=== PATIENT | male | born 1985 | race Caucasian/White ===

== ENCOUNTER 2016-09-24 08:47 | Inpatient (IN) | payer MEDICAID ==
[~2016-09-24] VITALS: Ht 188 cm; Wt 154.2 kg
[2016-09-24] MEDS ORDERED: KETOROLAC TROMETHAMINE 15 MG INJ IV ONE (09:45)
[2016-09-24] MEDS ORDERED: VANCOMYCIN IV 1,000 MG in IV DEXTROSE 5% 250 ML IV ONE (09:45)
[2016-09-24] MEDS ORDERED: PIPERACILLIN SODIUM/TAZOBACTAM 3.375 G in IV DEXTROSE 5% 50 ML IV ONE (09:45)
[2016-09-24] MEDS ORDERED: VANCOMYCIN IV 200 ML ONE (10:13)
[2016-09-24] MEDS ORDERED: PIPERACILLIN/TAZOBACTAM/D5W 50 ML IV ONE (10:13)
[2016-09-24] MEDS ORDERED: KETOROLAC TROMETHAMINE 15 MG INJ ONE (10:13)
[2016-09-24 10:16] LABS: CREATININE 1.3 mg/dL (0.6-1.3); POTASSIUM 3.7 mmol/L (3.5-5.1)
--- NOTE | 2016-09-24 10:17 | NUR ---
IV PLACED, BLOOD CX/LABS DRAWN/TOTADOL ADMINISTERED/XRAYS COMPLETED/ ZOSYN IVPB INFUSING, EZEQUIEL TECH AT THE SIDE.EKG DONE. PT POSITIONED FOR COMFORT.
[2016-09-24 10:19] LABS: BASOPHILS # (AUTO) 0.3 K/uL (0.0-8.0); BASOPHILS % (AUTO) 1.2 % (0.0-2.0); EOSINOPHILS % (AUTO) 0.1 % (0.0-7.0); HEMATOCRIT 44.5 % (40-50); HEMOGLOBIN 14.6 G/DL (14.0-18.0); LYMPHOCYTES # (AUTO) 0.6 K/UL (0.8-4.8); LYMPHOCYTES % (AUTO) 2.8 % (20.5-51.5); MEAN CORPUSCULAR HEMOGLOBIN 25.8 UUG (27.0-31.0); MEAN CORPUSCULAR HGB CONC 33 g/dL (32.0-37.0); MEAN CORPUSCULAR VOLUME 78.7 FL (82.0-92.0); MONOCYTES # (AUTO) 0.5 K/UL (0.1-1.30); MONOCYTES % (AUTO) 2.2 % (0.0-11.0); NEUTROPHILS # (AUTO) 19.9 K/UL (1.8-8.9); NEUTROPHILS % (AUTO) 93.7 % (38.5-71.5); PLATELET COUNT (AUTO) 208 K/UL (150-450); RED BLOOD CELL COUNT(AUTO) 5.65 MIL/UL (4.7-6.1); WHITE BLOOD COUNT (AUTO) 21.3 K/UL (4.0-11.2)
[2016-09-24 10:32] LABS: BILIRUBIN,DIRECT 0.1 mg/dL (0.0-0.2); BILIRUBIN,TOTAL 0.7 mg/dL (0.2-1.0); TOTAL PROTEIN, SERUM 7.7 g/dL (6.4-8.2)
--- NOTE | 2016-09-24 11:42 | NUR ---
[facility] knox in [facility] - 09/24/16 at 1145 by [id number] Patient discharged to home in stable conditon. Written and verbal after care instructions given. Patient verbalizes understanding of instructions.
[2016-09-24 11:52] LABS: BAND % (MANUAL) 6 % (0-10); LYMPHOCYTES % (MANUAL) 6 % (20-40); MONOCYTES % (MANUAL) 2 % (2-10); NEUTROPHILS % (MANUAL) 86 % (42-75)
[2016-09-24] MEDS ORDERED: ACETAMINOPHEN 325 MG TABLET PO ONE (12:30)
[2016-09-24] MEDS ORDERED: ACETAMINOPHEN ES 500 MG TABLET ONE (12:33)
--- NOTE | 2016-09-24 12:36 | NUR ---
MSE COMOPLETED, ADMIT ORDER WRITTEN, ALL MEDS ADMIN. BELONGINGS LIST DONE, AND ADMISSION DATA REPORT COMPLETED. CALLED [facility] 15MIN AGO TO GIVE REPORT TO 2ND FLOOR AND ACCEPTING RN WAS UNK. 2ND FLOOR TO CALL BACK FOR REPORT. PT RESTING, POSITIONED FOR COMFORT.
--- NOTE | 2016-09-24 12:44 | NUR ---
SBAR REPORTB TO VANNA MOON. PT TO RM 230 .
[2016-09-24] MEDS ORDERED: ASPI1TAB5 PO (12:46)
--- NOTE | 2016-09-24 13:30 | NUR ---
Patient admitted to ER with complaints of left leg pain. Diagnosis cellulitis of the bilateral lower extremity. Patient legs are edematous. Will be started on IV antibiotics. Awaiting orders from . Pics taken.
--- NOTE | 2016-09-24 13:32 | NUR ---
Patient is noted hypotensive. Will call MD to notify. Baseline 112/84 BP 97/60 P 104 TEMP 99.7 F SP02 94% RR 20
[2016-09-24] MEDS ORDERED: ZOLPIDEM 5 MG TABLET PO PRN (15:00)
[2016-09-24] MEDS ORDERED: ACETAMINOPHEN 325 MG TABLET PO PRN (15:00)
[2016-09-24] MEDS ORDERED: VANCOMYCIN IV 1,500 MG in IV DEXTROSE 5% 500 ML IV SCH (15:00)
[2016-09-24] MEDS: IV NS 1000 ML 1,000 ML IV PRN (15:00)
[2016-09-24] MEDS ORDERED: Z GUARD REMEDY PASTE 57 GM TUBE TOP PRN (15:00)
[2016-09-24] MEDS ORDERED: MAGNESIUM HYDROXIDE 30 ML LIQUID UDC PO PRN (15:00)
[2016-09-24 16:13] VITALS: BP 107/67
--- NOTE | 2016-09-24 17:37 | NUR ---
Clinical pharmacy note-Vancomycin dosing per pharmacy Subjective: To start Vancomycin dosing on this 31 year old patient for cellulitis Objective: BUN 18 Scr 1.3 WBC 21.3 Temp 101 Ht 6'2" Wt 340 lbs (verified with nurse) Assessment/Plan: Patient had 1 gram of Vancomycin in er today at 1035. Will start Vancomycin 2500mg(15mg/kg) every 12 hrs, First dose will be tonight at 1830. Will draw trough by 4th dose(not ordered yet ) for expected trough around 15. Will monitor renal function closely to adjust the dose if needed. Will follow daily.
[2016-09-24] MEDS: HYDROCODONE/APAP 5-325MG TABLET PO PRN (18:17)
[2016-09-24] MEDS: VANCOMYCIN IV 2,500 MG in IV DEXTROSE 5% 500 ML IV SCH (19:08)
[2016-09-24 20:38] VITALS: BP 117/72
[2016-09-24] MEDS: ONDANSETRON 4 MG/2 ML VIAL IV PRN (21:50)
[2016-09-25] MEDS: IV NS 1000 ML 1,000 ML IV PRN ×3 (02:14→22:16)
--- NOTE | 2016-09-25 03:05 | NUR ---
PATIENT SLEEPING IN BED AT THIS TIME, NO ACUTE DISTRESS NOTED. WILL CONTINUE TO MONITOR FOR SAFETY.
[2016-09-25 04:00] VITALS: BP 128/83
[2016-09-25] MEDS: HYDROCODONE/APAP 5-325MG TABLET PO PRN ×4 (05:02→22:16)
[2016-09-25] MEDS: ONDANSETRON 4 MG/2 ML VIAL IV PRN (05:02)
[2016-09-25] MEDS: VANCOMYCIN IV 2,500 MG in IV DEXTROSE 5% 500 ML IV SCH (05:52)
[2016-09-25] MEDS: PANTOPRAZOLE SODIUM 40 MG TABLET.DR PO SCH (06:30)
--- NOTE | 2016-09-25 06:31 | NUR ---
PATIENT AWAKE IN BED, NO ACUTE DISTRESS NOTED. COMPLIANT WITH MEDICATIONS THIS AM. SAFETY MEASURES MAINTAINED.
[2016-09-25 07:18] LABS: BASOPHILS # (AUTO) 0.1 K/uL (0.0-8.0); BASOPHILS % (AUTO) 0.7 % (0.0-2.0); EOSINOPHILS # (AUTO) 0.2 K/uL (0.0-0.7); HEMATOCRIT 41.5 % (40-50); HEMOGLOBIN 13.3 G/DL (14.0-18.0); LYMPHOCYTES # (AUTO) 0.9 K/UL (0.8-4.8); LYMPHOCYTES % (AUTO) 7.6 % (20.5-51.5); MEAN CORPUSCULAR HEMOGLOBIN 25.4 UUG (27.0-31.0); MEAN CORPUSCULAR HGB CONC 32 g/dL (32.0-37.0); MEAN CORPUSCULAR VOLUME 79.2 FL (82.0-92.0); MONOCYTES % (AUTO) 9.2 % (0.0-11.0); NEUTROPHILS # (AUTO) 9.1 K/UL (1.8-8.9); NEUTROPHILS % (AUTO) 80.5 % (38.5-71.5); PLATELET COUNT (AUTO) 172 K/UL (150-450); RED BLOOD CELL COUNT(AUTO) 5.24 MIL/UL (4.7-6.1); THYROID STIMULATING HORMONE 1.116 mIU/mL (0.358-3.740)
[2016-09-25 07:21] LABS: MAGNESIUM 1.8 mg/dL (1.8-2.4); PHOSPHOROUS 3.7 mg/dL (2.5-4.9); POTASSIUM 3.7 mmol/L (3.5-5.1)
[2016-09-25 07:22] LABS: WHITE BLOOD COUNT (AUTO) 11.3 K/UL (4.0-11.2)
[2016-09-25 07:25] LABS: CREATININE 1.9 mg/dL (0.6-1.3)
--- NOTE | 2016-09-25 07:38 | NUR ---
AT BEDSIDE, SUPPORTIVE OF PATIENT CARE.
--- NOTE | 2016-09-25 08:40 | NUR ---
MOTHER AND GRANDMOTHER AT BEDSIDE, SUPPORTIVE OF PATIENT CARE. ASK FOR PAIN MED, REFUSED NORCO AND WANTS DILAUDID.UNABLE TO TALK TO PATIENT TO TAKE TILL NEW ORDER IF OK BY MD. CONTINUED TO REFUSED NORCO. NORCO DISCARDED PER POLICY.
[2016-09-25] MEDS ORDERED: KETOROLAC TROMETHAMINE 30 MG INJ IVP PRN (10:15)
--- NOTE | 2016-09-25 10:22 | NUR ---
GIVEN TORADOL ORDERED. DISCUSSED MED WITH PATIENT , MOTHER AND GRANDMOTHER. LEAFLET GIVEN FOR FURTHER INFORMATIONS.
--- NOTE | 2016-09-25 11:00 | NUR ---
offered am care , refused for now wanted shower at 1800
--- NOTE | 2016-09-25 11:10 | NUR ---
DISCUSSED PAIN MANAGEMENT EFFECT, VERBALIZED EFFECTIVE MED FOR HIS DISCOMFORT.
[2016-09-25 12:00] VITALS: BP 107/61
--- NOTE | 2016-09-25 12:15 | NUR ---
SLEEPING COMFORTABLY. NO VISITORS FOR NOW.
[2016-09-25 12:18] VITALS: BP 103/68
--- NOTE | 2016-09-25 15:00 | NUR ---
offered change line am care, frefused again, wants to shower at 1800
--- NOTE | 2016-09-25 15:00 | NUR ---
patient stated that he has migraine headache and mother will his meds. discussed that meds need order from md, and show to nurse for verification. verbalized understanding
--- NOTE | 2016-09-25 15:12 | NUR ---
Clinical pharmacy note-Vancomycin dosing per pharmacy Subjective: To continue Vancomycin dosing on this 31 year old patient for cellulitis Objective: BUN 19 Scr 1.9 (yesterday 1.3) WBC 11.3 Temp 98.5 Ht 6'2" Wt 340 lbs (verified with nurse) Assessment/Plan: Due to jump in SCr, discontinued scheduled Vancomycin 2500mg(15mg/kg) every 12 hrs, and will dose by level until renal function stable. Last dose was given today @0552, therefore further dosing d/c'd and random level ordered for today @1700 before pharmacy closes. Will check level and dose as appropriate. Will continue to monitor Addendum: 09/25/16 at 1825 by JIMENEZ DAVIS RANDOM VANCOMYCIN LEVEL 20.7 CHANGE VANCOMYCIN DOSE TO 2GM Q12H IVPB, ESTIMATED TROUGH 15. START 5 HOURS LEVEL DRAWN.
[2016-09-25 16:03] VITALS: BP 145/87
--- NOTE | 2016-09-25 17:37 | NUR ---
mother at bedside, gave excedrin migraine med x 2 tablet to patient. made aware no meds from hold without order from md. verbalized understanding, apologetic with incident, patient stated just didnt listen to request. mother made aware of policy no visitor pass 8pm, reluctant but will comply. will relay to next shift. awaiting blood draw random vanco level for vanco due at about 1800. verbalized understanding.
--- NOTE | 2016-09-25 18:00 | NUR ---
unable to shower, eating and headache just subsided.
--- NOTE | 2016-09-25 18:31 | NUR ---
aware of new vanco order , to be given 2300. prn headache relief with meds. lower extremities still with swelling and redness.
[2016-09-25 20:00] VITALS: BP 112/71
[2016-09-25 20:07] VITALS: BP 112/71
--- NOTE | 2016-09-25 22:53 | NUR ---
RN NOTES: PATIENT HAS THE IV ACCESS ON THE RIGHT ARM INFILTRATED. IV ACCESS IS REMOVED. PATIENT REFUSED TO START A NEW IV ACCESS. MD. AMELIA URBANO IS NOTIFIED. WILL CONTINUE TO MONITOR.
[2016-09-25] MEDS ORDERED: VANCOMYCIN IV 2,000 MG in IV DEXTROSE 5% 500 ML IV SCH (23:00)
--- NOTE | 2016-09-25 23:48 | NUR ---
RN NOTES: MD.CHERYL URBANO ORDERED TO START A MIDLINE. CHARGE NURSE IS AWARE. WILL FOLLOW UP.
[2016-09-26] MEDS ORDERED: ONDANSETRON HCL 4 MG TABLET ONE (00:08)
[2016-09-26] MEDS ORDERED: ONDANSETRON HCL 4 MG TABLET PO PRN (00:15)
[2016-09-26] MEDS: ONDANSETRON 4 MG/2 ML VIAL IV PRN ×3 (01:16→15:34)
--- NOTE | 2016-09-26 01:22 | NUR ---
RN NOTES: NEW IV ACCESS GAUGE 20 IS ESTABLISHED ON THE RIGHT FOREARM UPON PATIENT'S AGREEMENT. Addendum: 09/26/16 at 0124 by AJ GRIGSBY RN RED NOTES: NEW IV ACCESS GAUGE 20 IS ESTABLISHED BY THE NURSING IT HELP DESK TECHNICIAN ON THE RIGHT FOREARM UPON PATIENT'S AGREEMENT
[2016-09-26 04:00] VITALS: BP 120/67
[2016-09-26 05:11] VITALS: BP 120/67
[2016-09-26] MEDS: PANTOPRAZOLE SODIUM 40 MG TABLET.DR PO SCH ×2 (06:40→06:43)
--- NOTE | 2016-09-26 07:45 | NUR ---
pharmacy [place] aware of med vancomycin held last night. will resume vancomycin ivpb as ordered. discussed with patient and agreed. patient denies any discomfort at this time, food at bedside, will return back to sleep for now.
[2016-09-26] MEDS ORDERED: VANCOMYCIN IV 2,000 MG in IV DEXTROSE 5% 500 ML IV SCH (08:00)
--- NOTE | 2016-09-26 09:22 | NUR ---
grandmother at bedside, supportive of patient care.
--- NOTE | 2016-09-26 11:40 | NUR ---
refused blood draw unless taken on top of hand , would rather have it done from midline that is not yet in and wont be placed till tomorrow. able to convince and have drawn top of hand. pharmacy aware of blood drawn.
[2016-09-26 11:47] VITALS: BP 124/81
[2016-09-26 11:52] LABS: BASOPHILS # (AUTO) 0.2 K/uL (0.0-8.0); BASOPHILS % (AUTO) 1.8 % (0.0-2.0); EOSINOPHILS # (AUTO) 0.3 K/uL (0.0-0.7); EOSINOPHILS % (AUTO) 3.2 % (0.0-7.0); HEMATOCRIT 41.6 % (40-50); HEMOGLOBIN 14.1 G/DL (14.0-18.0); LYMPHOCYTES # (AUTO) 1.4 K/UL (0.8-4.8); LYMPHOCYTES % (AUTO) 13.6 % (20.5-51.5); MEAN CORPUSCULAR HEMOGLOBIN 26.9 UUG (27.0-31.0); MEAN CORPUSCULAR HGB CONC 34 g/dL (32.0-37.0); MEAN CORPUSCULAR VOLUME 79.1 FL (82.0-92.0); MONOCYTES # (AUTO) 0.9 K/UL (0.1-1.30); MONOCYTES % (AUTO) 8.8 % (0.0-11.0); NEUTROPHILS # (AUTO) 7.5 K/UL (1.8-8.9); NEUTROPHILS % (AUTO) 72.6 % (38.5-71.5); PLATELET COUNT (AUTO) 207 K/UL (150-450); RED BLOOD CELL COUNT(AUTO) 5.25 MIL/UL (4.7-6.1); WHITE BLOOD COUNT (AUTO) 10.3 K/UL (4.0-11.2)
[2016-09-26 12:01] LABS: POTASSIUM 3.6 mmol/L (3.5-5.1)
[2016-09-26 12:03] LABS: CREATININE 1.9 mg/dL (0.6-1.3)
[2016-09-26] MEDS: IV NS 1000 ML 1,000 ML IV PRN (12:15)
[2016-09-26 13:22] LABS: BAND % (MANUAL) 1 % (0-10); EOSINOPHILS % (MANUAL) 2 % (0-8); LYMPHOCYTES % (MANUAL) 9 % (20-40); MONOCYTES % (MANUAL) 9 % (2-10); NEUTROPHILS % (MANUAL) 79 % (42-75)
--- NOTE | 2016-09-26 13:40 | NUR ---
Clinical pharmacy note-Vancomycin dosing per pharmacy Subjective: To continue Vancomycin dosing on this 31 year old patient for cellulitis Objective: BUN 15 Scr 1.9 WBC 10.3 Temp 98.2 Ht 6'2" Wt 340 lbs (verified with nurse) Assessment/Plan: Since srcr stable at 1.9, will continue same dose of vancomycin 2gm IVPB q14h for predicted vancomycin trough level of 16 mcg/ml at steady state. 1st dose was given today at 0800. Plan to check vancomycin trough level before 4th dose (not yet ordered) . Will continue to monitor
[2016-09-26] MEDS: HYDROCODONE/APAP 5-325MG TABLET PO PRN (14:33)
--- NOTE | 2016-09-26 14:41 | NUR ---
family visit at bedside, supportive of patient care.
[2016-09-26 15:36] VITALS: BP 127/80
--- NOTE | 2016-09-26 18:20 | NUR ---
family at bedside, supportive of patient care. patient denies discomfort. no emesis for the shift
[2016-09-26 20:00] VITALS: BP 123/77
--- NOTE | 2016-09-26 20:00 | NUR ---
PATIENT AWAKE IN BED. DENIES PAIN. IVF INFUSING WELL TO RIGHT FA. VSS. CALL LIGHT IN REACH .ALL NEEDS ATTENDED. WILL CONTINUE TO MONITOR .
[2016-09-26] MEDS: VANCOMYCIN IV 2,000 MG in IV DEXTROSE 5% 500 ML IV SCH ×3 (21:03→22:00)
--- NOTE | 2016-09-26 21:45 | NUR ---
VANCOMYCIN STARTED BY TOOL MAINTENANCE TECHNICIAN. PATIENT C/O DISCOMFORT IN IV SITE. TOOL MAINTENANCE TECHNICIAN NOTIFIED AND WILL RESTART.
--- NOTE | 2016-09-26 23:00 | NUR ---
PATIENT IS BEING VERY DIFFICULT AND UNCOOPERATIVE REGARDING CARE. PATIENT REFUSED FOR IV TO BE RE-INSERTED. PATIENT EDUCATED ON IMPORTANCE OF IV ANTIBIOTICS. PATIENT STILL REFUSED AND WANTS TO SPEAK WITH THE MD IN THE AM. AMELIA CHAMPION GRAIN ELEVATOR CLERK AND AWARE THAT PATIENT IS REFUSING IV TO BE RE-INSERTED. NO NEW ORDERS. ALL NEEDS ATTENDED.
--- NOTE | 2016-09-26 23:03 | NUR ---
pt refused iv to be restarted.justni spain inserted a gauge 20 on the left antecubital which is patent,pt doesnt like the iv which is patent and wanted to removed it.iv was removed.
[2016-09-27] MEDS: PANTOPRAZOLE SODIUM 40 MG TABLET.DR PO SCH (06:15)
--- NOTE | 2016-09-27 06:27 | NUR ---
PATIENT ASLEEP. EASILY AROUSABLE. VSS. CALL LIGHT IN REACH.
--- NOTE | 2016-09-27 08:00 | NUR ---
RESTING QUIET AND WELL NO SOB OR PAIN CALL LIGHT WITHIN REACH AND INSTRUCTION TO CALL WHEN NEEDED
[2016-09-27] MEDS: VANCOMYCIN IV 2,000 MG in IV DEXTROSE 5% 500 ML IV SCH (12:00)
[2016-09-27 12:03] VITALS: BP 137/90
[2016-09-27 12:05] VITALS: BP 137/90
[2016-09-27] MEDS ORDERED: LACT1POW MC (12:52)
[2016-09-27] MEDS ORDERED: CLIN300C97 PO (12:52)
[2016-09-27] MEDS ORDERED: SULF1TAB48 PO (12:52)
[2016-09-27] MEDS ORDERED: BETAMETHASONE VALERATE 0.1% TOP SCH (13:00)
--- NOTE | 2016-09-27 14:00 | NUR ---
DR KRISTINA ORTEGA SEE PATIENT AND ORDER OK TO D/C HOME TODAY WITH PRECRIPTION ,PATIENT WAS EXPLAINED OF D/C HOME TODAY REGARDING NEED TO F/U WITH OWN PMD CONTINUE MEDICINE ORDER AND EDUCATION PK GIVEN ,VERBALIZES UNDERSTAND STATE HIS MOTHER WILL PICK HIM UP TODAY AT 5PM
--- NOTE | 2016-09-27 17:00 | NUR ---
CONDITION STABLE ASSIST TO TAKE SHR THIS PM PRIOR DISCHARGE NO PAIN OR SOB
[2016-09-27] MEDS ORDERED: HYDROCORTISONE 1% CREAM 30 GM TUBE TP ONE (17:30)
--- NOTE | 2016-09-27 18:00 | NUR ---
FAMILY MOTHER AT BEDSIDE HYDROCORTISONE CREAM APPLY AFTER TAKEN RONNI AND JAME APPLY ON INSTRUCTION TO REMOVE Q [address] SORIANO EXPLAINED ,VERBALIZES UNDERSTAND D/C SHEET SIGNS
--- NOTE | 2016-09-27 19:10 | NUR ---
d/c home with his belonging accompanies with mother CONDITION STABLE NO PAIN
== END 2016-09-27 19:10 | disposition home or self-care (01) | DRG 720 ==
LOC: ER 08:47 → MED 12:41
DX: A41.9 Sepsis, unspecified organism (principal); N17.0 Acute kidney failure with tubular necrosis; E43 Unspecified severe protein-calorie malnutrition; E66.01 Morbid (severe) obesity due to excess calories; L03.116 Cellulitis of left lower limb; G43.909 Migraine, unspecified, not intractable, without status migrainosus; Z88.5 Allergy status to narcotic agent; Z68.41 Body mass index [BMI] 40.0-44.9, adult; R60.0 Localized edema
CPT/HCPCS: 36415; 70030-TC; 71010; 73590; 83605; 83735; 84100; 84443; 85025; 85730; 87040; 93005; A4663; J1885; J2405; J2543; J3370; J7030; J7060; Q0162